=== PATIENT | female | born 1985 | race African-American/Black ===

== ENCOUNTER 2021-03-08 17:20 | Emergency (ER) | payer OTHER ==
[~2021-03-08] VITALS: Ht 172.7 cm; Wt 68.5 kg
[2021-03-08 17:52] LABS: ABSOLUTE BASOPHILS 0.1 thou/uL (0.0-0.2); ABSOLUTE EOSINOPHILS 0.1 thou/uL (0.0-0.7); ABSOLUTE LYMPHOCYTES 2.2 thou/uL (0.8-5.3); ABSOLUTE MONOCYTES 0.4 thou/uL (0.0-1.2); ABSOLUTE NEUTROPHILS 6.7 thou/uL (1.6-8.1); BASOPHILS 0.6 %; EOSINOPHILS 1.5 %; HEMATOCRIT 37.7 % (37.0-47.0); HEMOGLOBIN 12.5 gm/dL (12.0-15.0); LYMPHOCYTES 23.2 %; MCH 29.7 pg (26.0-34.0); MCHC 33.1 g/dL (28.0-37.0); MCV 89.7 fL (80.0-100.0); MONOCYTES 4.7 %; MPV 9.3 fl. (7.2-11.1); NUCLEATED RBCS 0 /100WBC; PLATELET COUNT* 237 thou/uL (150-400); RDW-CV 12.6 % (10.5-14.5); WBC 9.6 thou/uL (4.0-11.0)
[2021-03-08 18:04] LABS: CALCIUM 8.8 mg/dL (8.5-10.1); POTASSIUM 3.5 mmol/L (3.5-5.1)
[2021-03-08 18:07] LABS: APTT 27.9 Seconds (25.0-31.3); INR 1.1; PROTIME 11.4 Seconds (9.20-11.50)
[2021-03-08 18:19] LABS: ALBUMIN 4.3 g/dL (3.4-5.0); CK-MB MASS 0.8 ng/mL (<0.5-3.6); TOTAL BILIRUBIN 0.4 mg/dL (<0.1-1.0); TOTAL PROTEIN 7.1 g/dL (6.4-8.2)
[2021-03-08 20:36] VITALS: BP 102/60
--- NOTE | 2021-03-09 11:20 | EKG ---
[place] [address] ELECTROCARDIOGRAM REPORT Name: DENIS OVERTON Room: [facility]#: [id number] Admission: 03/08/21 Attend Phys: Discharge: 03/08/21 Date of : 83 Date of Service: 03/08/211726 Report #: [id number] THIS REPORT FOR: //name// [facility] ED Test Date: 2021-03-08 Test Time: 17:27:23 Pat Name: DENIS OVERTON Department: Room: Gender: F Air Chipper: Lalo : 1985 Requested By: Nahun Jara Order Number: [id number] MD: Lance Henning Measurements Intervals [place] Rate: 62 P: 75 WV: 147 QRS: 35 QRSD: 96 T: 26 QT: 398 QTc: 405 Interpretive Statements Sinus rhythm No previous ECG available for comparison Electronically Signed On 03-09-2021 11:19:52 CDT by Lance Henning [email or web address] <ELECTRONICALLY SIGNED> By: Lance Henning MD, [facility] 03/09/21 1119 26 26 Lance Henning MD, [facility] /EPI
== END 2021-03-08 20:36 | disposition home or self-care (01) ==
LOC: EDBD 17:20 → M.ERS 17:20
PROVIDERS: Emergency Medicine
DX: R53.83 Other fatigue (principal); R53.1 Weakness